=== PATIENT | male | born 1955 | race Two or more races ===

== ENCOUNTER 2018-08-19 04:49 | Inpatient (IN) | payer BC, MEDICAID ==
[~2018-08-19] VITALS: Ht 188 cm; Wt 125.6 kg
[2018-08-19] MEDS ORDERED: HYDROmorphone HCL 2 MG/ML VL IV ONE ×2 (05:15→06:45)
[2018-08-19] MEDS ORDERED: ONDANSETRON HCL 4 MG/2 ML VIAL IV ONE (05:15)
[2018-08-19] MEDS ORDERED: SODIUM CHLORIDE 0.9% 1,000 ML IV ONE (05:15)
[2018-08-19] MEDS ORDERED: ADENOSINE 6 MG/2 ML INJ IV ONE ×4 (05:45→06:00)
[2018-08-19] MEDS ORDERED: SODIUM CHLORIDE 0.9% 1,550 ML IV ONE (06:30)
[2018-08-19 07:00] LABS: Hemoglobin 12.7 g/dL (13.5-17.5); Platelet Count (auto) 89 10^3/uL (140-450); Red Blood Cells 4.49 10^6/uL (4.5-5.90)
[2018-08-19 07:05] LABS: Hematocrit 39.3 % (41.0-53.0); Mean Corpuscular Hemoglobin 28.2 pg (28.0-32.0); Mean Corpuscular Hgb Conc. 32.2 g/dL (32.0-36.0); Mean Corpuscular Volume 87.7 fL (80.0-100.0); Red Cell Distribution Width 15.2 % (11.8-14.3)
[2018-08-19 07:12] LABS: Albumin 2.4 g/dL (3.4-5.0); Calcium 8.7 mg/dL (8.5-10.1); Magnesium 2.5 mg/dL (1.6-2.6); Potassium 4.7 mmol/L (3.5-5.1)
[2018-08-19 07:13] LABS: White Blood Cell 62.6 10^3/uL (4.4-10.8)
[2018-08-19 07:14] LABS: Basophils % (manual) 0 (0.0-2.0); Blast Cells 0; Metamyelocytes % 0; Myelocytes % 0; Promyelocytes % 0; Reactive Lymphocytes 0
[2018-08-19 07:28] LABS: Bilirubin, Total 4.1 mg/dL (0.2-1.0); Total Protein 5.9 g/dL (6.4-8.2)
[2018-08-19 07:44] LABS: Lactic Acid w/Reflex 3.6 mmol/L (0.4-2.0)
[2018-08-19] MEDS ORDERED: VANCOMYCIN 1GM/250ML 250 ML IV ONE (08:00)
[2018-08-19] MEDS ORDERED: PIPERACILLIN-TAZOB 3.375GM 100 ML IV ONE (08:00)
[2018-08-19 08:07] LABS: INR 1.84 (0.9-1.15)
[2018-08-19 08:36] LABS: Band Neutrophils % (manual) 20; Eosinophils % (manual) 10 (0-7); Lymphocytes % (manual) 2 (10.0-50.0); Monocytes % (manual) 3 (0-12)
[2018-08-19] MEDS ORDERED: NITROGLYCERIN 0.4 MG SL TAB SL PRN (08:45)
[2018-08-19] MEDS ORDERED: MORPHINE SULFATE 4 MG/ML SYR/VIAL IV PRN (08:45)
[2018-08-19] MEDS ORDERED: ASPirin 81 mg TAB PO ONE (08:45)
[2018-08-19] MEDS ORDERED: IOHEXOL 350 MG/ML 100ML IJ ONE (09:03)
[2018-08-19] MEDS: SODIUM CHLORIDE 0.9% 1,000 ML IV SCH ×2 (09:15→16:26)
[2018-08-19] MEDS ORDERED: VANCOMYCIN PER PHARMACY 0 MG IV SCH (09:45)
[2018-08-19] MEDS: ASPirin 81 mg TAB PO SCH (10:00)
[2018-08-19] MEDS: METOPROLOL TARTRATE 25 MG TAB PO SCH ×3 (10:00→21:57)
[2018-08-19] MEDS: DOCUSATE SOD 100 MG CAP PO SCH ×2 (10:00→21:56)
[2018-08-19] MEDS: ONDANSETRON HCL 4 MG/2 ML VIAL IV PRN ×2 (11:31→15:40)
[2018-08-19] MEDS: HYDROmorphone HCL 2 MG/ML VL IV PRN ×4 (11:31→23:44)
--- NOTE | 2018-08-19 11:55 | NUR ---
Telemetry admit from [facility]A admitted to Telemetry unit. Patient oriented to ANATOLIY dooley RN, Telemetry unit, room 291, bed B, and unit policies regarding patient care and visiting hours. Patient now on continuous telemetry monitoring, tele box #[id number] and telemetry reading on arrival to unit is NSR. Patient placed on bedside oxygen, weighed by bedscale and encouraged to call if they need something. All questions and concerns addressed, patient verbalized understanding.
[2018-08-19 13:00] VITALS: BP 98/61
[2018-08-19] MEDS ORDERED: METH-562 PO (13:07)
[2018-08-19] MEDS ORDERED: RIVA10TA PO (13:07)
[2018-08-19] MEDS ORDERED: MELO1TAB73 PO (13:07)
--- NOTE | 2018-08-19 14:00 | NUR ---
WOUND CONSULT NOTE: [facility] BARIATRIC AIR BED ORDERED AT THIS TIME PER BEDSIDE NURSE REQUEST. PATIENT TO BE PLACED, PENDING DELIVERY BY STEPHANY CAMARENA. SKIN/WOUND CARE PLAN AND WOUND CARE ORDERS PLACED PER PROTOCOL.
--- NOTE | 2018-08-19 14:45 | NUR ---
HOSPITALIST AWARE The hospitalist calls and is updated on the patient's status. The patient's troponin level is high and the hospitalist places and order for a cardiology consult via telephone. Will continue to monitor and POC.
[2018-08-19] MEDS: PIPERACILLIN-TAZOB 3.375GM 100 ML IV SCH ×2 (15:39→21:24)
--- NOTE | 2018-08-19 16:55 | NUR ---
ONCOLOGIST BEDSIDE Dr. Bentley is bedside and updates the patient and the patient's family on the POC.
[2018-08-19 17:00] VITALS: BP_SYST 95; BP_SYST 99; BP_DIAS 59; BP_DIAS 61
--- NOTE | 2018-08-19 17:00 | NUR ---
WOUND CARE NOTE: IN TO ASSESS PATIENT AT THIS TIME FOR SKIN INTEGRITY. AWAITING DELIVERY OF BARIATRIC AIR BED WITH TRAPEZE. PATIENT EDUCATED ON THE USE OF THE TRAPEZE. PATIENT VERBALIZED UNDERSTANDING. PATIENT HAS GENERALIZED EDEMA, ESPECIALLY TO THE BLE THAT IS NON PITTING. HE IS WOUND FREE AT THIS TIME. RECOMMEND: FREQUENT TURN SCHEDULE Q 2 HOURS, PRN CONDITION PERMITS, WITH PRESSURE REDISTRIBUTION USING PILLOWS/WEDGES, BID/PRN APPLICATION WITH MOISTURE BARRIER CREAM, COVERING UPPER MEDIAL SACRUM WITH OPTIFOAM GENTLE SACRAL DRESSING, DIETARY CONSULT, ELEVATION OF BLE UP FOR EDEMA CONTROL, SPECIALTY AIR BED, CONTINUED MONITORING BY WOUND CARE TEAM.
[2018-08-19] MEDS ORDERED: RIVAROXABAN 15 MG TAB PO SCH (18:00)
--- NOTE | 2018-08-19 18:35 | NUR ---
SPECIALITY MATTRESS The patient is transferred to a [facility] Specialty mattress per wound care order, will continue to monitor and POC.
--- NOTE | 2018-08-19 19:40 | NUR ---
Opening Shift Note Assumed care of patient, awake and oriented. No S/S of distress/SOB or pain. On specialty mattress. Discussed on POC and to call for assist PRN, patient verbalized understanding, call light within reach, will continue to monitor for changes Q1hr and PRN.
[2018-08-19 20:00] VITALS: BP 106/59
--- NOTE | 2018-08-19 21:40 | NUR ---
Noted skin tear on sacral area, instructed patient to take photos for reference, per patient he wanted to do it in the morning
[2018-08-19] MEDS: ENOXAPARIN SOD 120 MG/0.8 ML SYRINGE SC SCH (21:57)
[2018-08-19 22:00] VITALS: BP 106/59
[2018-08-19] MEDS: VANCOMYCIN 1GM/250ML 250 ML IV SCH (23:10)
--- NOTE | 2018-08-19 23:15 | NUR ---
IV on RAC infiltrated, removed with catheter intact, patient tolerated well IV insertion IV access obtained, via clean sterile technique by inserting 22 gauge catheter at RFA. IV secured properly. No trauma to site. Patient tolerated procedure well.
[2018-08-20] MEDS: SODIUM CHLORIDE 0.9% 1,000 ML IV SCH ×3 (00:45→16:06)
[2018-08-20] MEDS: PIPERACILLIN-TAZOB 3.375GM 100 ML IV SCH ×4 (03:30→21:09)
--- NOTE | 2018-08-20 04:00 | NUR ---
Pictures taken on skin tear of sacral area, applied Z-guard and covered with optifoam. Turned every 2 hours, patient tolerated well
[2018-08-20 05:00] VITALS: BP 112/65
[2018-08-20] MEDS: HYDROmorphone HCL 2 MG/ML VL IV PRN ×8 (05:18→22:55)
[2018-08-20 05:29] LABS: Hematocrit 34.1 % (41.0-53.0); Hemoglobin 11.2 g/dL (13.5-17.5); Mean Corpuscular Hemoglobin 28.5 pg (28.0-32.0); Mean Corpuscular Hgb Conc. 32.8 g/dL (32.0-36.0); Mean Corpuscular Volume 86.8 fL (80.0-100.0); Platelet Count (auto) 93 10^3/uL (140-450); Red Blood Cells 3.93 10^6/uL (4.5-5.90); Red Cell Distribution Width 15.5 % (11.8-14.3)
[2018-08-20 05:40] LABS: Calcium 8.3 mg/dL (8.5-10.1); Potassium 4.5 mmol/L (3.5-5.1)
[2018-08-20 05:44] LABS: BUN/Creatinine Ratio 38.9; Bilirubin, Total 3.9 mg/dL (0.2-1.0); Total Protein 4.9 g/dL (6.4-8.2)
[2018-08-20 05:44] LABS: White Blood Cell 57.9 10^3/uL (4.4-10.8)
[2018-08-20 05:45] LABS: Basophils % (manual) 0 (0.0-2.0); Blast Cells 0; Metamyelocytes % 0; Myelocytes % 0; Promyelocytes % 0; Reactive Lymphocytes 0
[2018-08-20 05:51] LABS: Urine Amorphous Crystal FEW /hpf (None Seen); Urine Bacteria FEW /hpf (None Seen); Urine Blood Negative /uL (Negative); Urine Specific Gravity 1.028 (1.001-1.035); Urine WBC 1 /hpf (0 - 3)
--- NOTE | 2018-08-20 07:30 | NUR ---
OPENING NOTE The patient is received alert and oriented times four with no SOB or s/s of distress at this time. The patient is resting in bed in the lowest position with call light within reach, will continue to monitor and POC.
[2018-08-20 08:44] LABS: Band Neutrophils % (manual) 12; Eosinophils % (manual) 12 (0-7); Lymphocytes % (manual) 4 (10.0-50.0); Monocytes % (manual) 11 (0-12)
[2018-08-20 09:13] VITALS: BP 112/63
[2018-08-20] MEDS: ASPirin 81 mg TAB PO SCH (09:13)
[2018-08-20] MEDS: METOPROLOL TARTRATE 25 MG TAB PO SCH ×2 (09:13→22:39)
[2018-08-20] MEDS: DOCUSATE SOD 100 MG CAP PO SCH ×2 (09:13→22:38)
[2018-08-20] MEDS: ENOXAPARIN SOD 120 MG/0.8 ML SYRINGE SC SCH ×2 (09:14→22:39)
--- NOTE | 2018-08-20 09:45 | NUR ---
IV insertion IV access obtained, via clean sterile technique by inserting 20 gauge catheter at the left forearm after one attempt(s). IV secured properly. No trauma to site. Patient tolerated procedure well.
[2018-08-20] MEDS: VANCOMYCIN 1GM/250ML 250 ML IV SCH ×2 (10:35→20:19)
--- NOTE | 2018-08-20 12:15 | NUR ---
PAIN UNCONTROLLED The patient states that his pain is uncontrolled with his current pain medication regiment. Dr. Bentley is paged for the patient, will continue POC.
--- NOTE | 2018-08-20 12:50 | NUR ---
GONZALO UNCONTROLLED The patient's pain is uncontrolled by his current medication regiment. Dr. Ngo is paged for the patient, will continue POC.
[2018-08-20 13:01] VITALS: BP 104/58
[2018-08-20] MEDS: METHOCARBAMOL 500 MG TAB PO PRN ×2 (13:15→20:15)
--- NOTE | 2018-08-20 15:20 | NUR ---
ONCOLOGIST CALLS Dr. Bentley calls and is updated on the patient's uncontrolled pain status. Dr. Bentley places orders via telephone, will continue to monitor and POC.
[2018-08-20] MEDS ORDERED: HYDROmorphone HCL 2 MG/ML VL IV PRN (15:30)
--- NOTE | 2018-08-20 16:30 | NUR ---
Rounds Patient awake and alert. No S/S of distress/SOB or pain. Will continue to monitor changes q1hr and PRN.
[2018-08-20] MEDS ORDERED: HYDR-531 PO (16:51)
[2018-08-20] MEDS ORDERED: METH-532 PO (16:51)
[2018-08-20] MEDS ORDERED: LIDO5DIS21 TOP (16:51)
[2018-08-20] MEDS ORDERED: RIVA20TA PO (16:51)
[2018-08-20 16:56] VITALS: BP 113/68
--- NOTE | 2018-08-20 18:00 | NUR ---
TRANSFER SERVICE Dr. Villanueva states that he is transferring service to Dr. Dailey. The patient and the patient's family is made aware.
--- NOTE | 2018-08-20 19:40 | NUR ---
Opening Shift Note Assumed care of patient, awake and alert. No S/S of distress/SOB. On specialty mattress. Family at bedside. Discussed on POC and to call for assist as needed, turned every 2 hours, call light within reach, will continue to monitor for changes Q1hr and PRN.
[2018-08-20 20:00] VITALS: BP 114/61
[2018-08-20 22:00] VITALS: BP 114/61
[2018-08-21] MEDS: SODIUM CHLORIDE 0.9% 1,000 ML IV SCH ×3 (01:43→16:17)
[2018-08-21] MEDS: HYDROmorphone HCL 2 MG/ML VL IV PRN ×9 (02:40→23:14)
[2018-08-21] MEDS: PIPERACILLIN-TAZOB 3.375GM 100 ML IV SCH ×4 (03:12→20:58)
[2018-08-21 05:00] VITALS: BP 107/61
[2018-08-21] MEDS: METHOCARBAMOL 500 MG TAB PO PRN (05:06)
[2018-08-21] MEDS: VANCOMYCIN 1GM/250ML 250 ML IV SCH ×2 (05:06→16:16)
--- NOTE | 2018-08-21 07:25 | NUR ---
OPENING SHIFT PATIENT IS AWAKE IN BED. PATIENT IS ALERT AND ORIENTED X4. NO S/S OF DISTRESS OR SOB. PATIENT C/O OF 8/10 BACK PAIN. WILL MEDICATE PER EMAR. RESPIRATIONS EVEN AND UNLABORED. PATIENT IS ON 3L NASAL CANNULA, WITH NORMAL SALINE INFUSING @ 120 ML/HR INTRAVENOUSLY. IS AT BEDSIDE. BED IS IN LOWEST POSITION, SIDE RAILS UP X2, AND CALL LIGHT WITHIN REACH. DISCUSSED POC WITH PATIENT AND , PATIENT AND VERBALIZED UNDERSTANDING. WILL CONTINUE TO MONITOR Q1 HOUR AND PRN.
[2018-08-21 08:55] VITALS: BP 111/60
[2018-08-21] MEDS: ASPirin 81 mg TAB PO SCH (11:08)
[2018-08-21] MEDS: METOPROLOL TARTRATE 25 MG TAB PO SCH ×2 (11:09→21:53)
[2018-08-21] MEDS: DOCUSATE SOD 100 MG CAP PO SCH ×2 (11:09→21:37)
[2018-08-21] MEDS: ENOXAPARIN SOD 120 MG/0.8 ML SYRINGE SC SCH ×2 (11:09→21:37)
--- NOTE | 2018-08-21 11:13 | NUR ---
MRI C.D IN CHART FROM 08/07 PATIENT REFUSED NEW MRI HERE, DUE TO PAIN LEVEL AND ALSO RECENT MRI STUDY DONE WITH/WITHOUT CONTRAST. C.D. GIVEN TO THIS R.N. AND PLACED IN HARD CHART.
[2018-08-21 12:55] VITALS: BP 111/66
[2018-08-21 17:50] VITALS: BP 116/64
--- NOTE | 2018-08-21 18:48 | NUR ---
END OF SHIFT PATIENT IS ASLEEP IN BED. RESPIRATIONS ARE EVEN AND UNLABORED. FAMILY IS AT BEDSIDE. NO S/S OF DISTRESS OR SOB. BED IS IN LOWEST POSITION , SIDE RAILS UP X2, AND CALL LIGHT WITHIN REACH. WILL ENDORSE CARE TO FUEL CELL SYSTEMS ENGINEER R.N.
--- NOTE | 2018-08-21 20:17 | NUR ---
Opening Shift Note Assumed care of patient, awake and alert. No S/S of distress/SOB c/o all over pain 9/10 pain level. Instructed on POC and to call for assist PRN, will continue to monitor for changes Q1hr and PRN.Medicated with hydromorphone 1mg.i.v.p as needed.Family at bedside, given to family their own patient X-ray disc.
[2018-08-21 22:00] VITALS: BP 113/63
[2018-08-22] MEDS: SODIUM CHLORIDE 0.9% 1,000 ML IV SCH ×3 (00:45→16:40)
[2018-08-22] MEDS: VANCOMYCIN 1GM/250ML 250 ML IV SCH ×3 (00:58→20:14)
[2018-08-22] MEDS: PIPERACILLIN-TAZOB 3.375GM 100 ML IV SCH ×4 (02:30→21:15)
[2018-08-22] MEDS: HYDROmorphone HCL 2 MG/ML VL IV PRN ×10 (03:17→23:17)
[2018-08-22 05:00] VITALS: BP 120/71
--- NOTE | 2018-08-22 07:16 | NUR ---
Report given to Carla Fraser to assume care.
--- NOTE | 2018-08-22 07:30 | NUR ---
Opening Shift Note Assumed care of patient from NOC RNHaley. Patient resting with eyes closed, even rise and fall of chest noted. No S/S of distress/SOB. Patient on inflatable bed which is in lowest, locked position. Nasal cannula in place, connected to 3L of O2. Fall precautions in place and call light within reach. Will continue to monitor for changes Q1hr and PRN.
[2018-08-22 09:00] VITALS: BP 102/75
--- NOTE | 2018-08-22 09:18 | NUR ---
ROSALINDA Received call from Huong TELLEZ. States that Hospice arrangements can not be set up until Friday. Will let MD know.
[2018-08-22] MEDS: ASPirin 81 mg TAB PO SCH (09:32)
[2018-08-22] MEDS: METOPROLOL TARTRATE 25 MG TAB PO SCH ×2 (09:33→21:16)
[2018-08-22] MEDS: ENOXAPARIN SOD 120 MG/0.8 ML SYRINGE SC SCH ×2 (09:33→21:16)
[2018-08-22] MEDS: DOCUSATE SOD 100 MG CAP PO SCH ×2 (09:33→21:15)
[2018-08-22 13:00] VITALS: BP 95/58
--- NOTE | 2018-08-22 13:32 | NUR ---
PAGED Paged Dr. Woodard per patient's family request for use of a condom catheter or urethral catheter. Awaiting call back.
[2018-08-22] MEDS ORDERED: LACTULOSE 20Gm/30ML SOLN PO ONE (13:45)
[2018-08-22] MEDS ORDERED: LACTULOSE 20Gm/30ML SOLN PO PRN (13:45)
[2018-08-22] MEDS: METHOCARBAMOL 500 MG TAB PO PRN (14:20)
--- NOTE | 2018-08-22 16:27 | NUR ---
CATHETER Condom catheter placed on patient per order. Tolerated well. Will continue to monitor.
[2018-08-22 17:00] VITALS: BP 106/62
--- NOTE | 2018-08-22 19:35 | NUR ---
Opening Shift Note Assumed care of patient, awake and alert. No S/S of distress/SOB. Pt states generalized pain /10. Instructed on POC and to call for assistance as needed. Pt is laying in a specialty bed with the rails up x2, bed locked in the lowest position and the call light is within reach. Pt has 20 ga IVs in the left and right forearms that flush without discomfort. Condom catheter is in place. Will continue to monitor.
--- NOTE | 2018-08-22 19:37 | NUR ---
CLOSING NOTE Endorsed care of patient to NOC Vik CASILLAS.
[2018-08-22 21:46] VITALS: BP_SYST 109; BP_SYST 111; BP_DIAS 68; BP_DIAS 69
--- NOTE | 2018-08-23 00:30 | NUR ---
New optifoam dressing applied to medial sacrum.
[2018-08-23] MEDS: SODIUM CHLORIDE 0.9% 1,000 ML IV SCH ×3 (00:50→17:00)
[2018-08-23] MEDS: HYDROmorphone HCL 2 MG/ML VL IV PRN ×6 (01:45→17:00)
[2018-08-23] MEDS: PIPERACILLIN-TAZOB 3.375GM 100 ML IV SCH ×4 (02:26→21:22)
[2018-08-23 05:02] VITALS: BP 101/60
[2018-08-23] MEDS: VANCOMYCIN 1GM/250ML 250 ML IV SCH ×2 (06:19→17:01)
[2018-08-23 06:22] LABS: Hemoglobin 11.6 g/dL (13.5-17.5); Mean Corpuscular Hgb Conc. 32.1 g/dL (32.0-36.0); Red Blood Cells 4.19 10^6/uL (4.5-5.90)
[2018-08-23 06:29] LABS: Mean Corpuscular Hemoglobin 27.6 pg (28.0-32.0); Platelet Count (auto) 135 10^3/uL (140-450); Red Cell Distribution Width 15.7 % (11.8-14.3)
[2018-08-23 06:46] LABS: Basophils % (manual) 0 (0.0-2.0); Blast Cells 0; Metamyelocytes % 0; Myelocytes % 0; Promyelocytes % 0; Reactive Lymphocytes 0; White Blood Cell 82.4 10^3/uL (4.4-10.8)
--- NOTE | 2018-08-23 07:15 | NUR ---
OPENING NOTE Assumed care of patient from NOC RNVik. Patient awake and alert with no S/S of distress/SOB. C/O pain 10/10 on adult pain scale, will administer prn pain medication as ordered. Instructed on POC and to call for assist PRN, verbalized understanding. Bed in lowest, locked position with side rails up x3. Fall precautions in place and call light within reach. Will continue to monitor for changes Q1hr and PRN.
[2018-08-23 09:00] VITALS: BP 112/62
[2018-08-23] MEDS: DOCUSATE SOD 100 MG CAP PO SCH ×2 (10:07→21:27)
[2018-08-23] MEDS: ASPirin 81 mg TAB PO SCH (10:07)
[2018-08-23] MEDS: ENOXAPARIN SOD 120 MG/0.8 ML SYRINGE SC SCH ×2 (10:08→21:28)
[2018-08-23] MEDS: METOPROLOL TARTRATE 25 MG TAB PO SCH ×2 (10:08→21:27)
[2018-08-23 11:00] LABS: Band Neutrophils % (manual) 17; Eosinophils % (manual) 9 (0-7); Lymphocytes % (manual) 5 (10.0-50.0); Monocytes % (manual) 7 (0-12)
[2018-08-23 13:00] VITALS: BP 105/75
--- NOTE | 2018-08-23 13:20 | NUR ---
PAIN Patient states pain not controlled with current pain regimen. Patient's family requesting a fentanyl patch. The family is also requesting insertion of mejia catheter ,since condom catheter was not affective, and insertion of enema. States that it has been several weeks since patient has had a BM. Will notify MD of patient/family requests.
--- NOTE | 2018-08-23 14:16 | NUR ---
Nutrition Assessment Notes please see attached link for complete assessment Est. Needs IBW [id number] kcal (25-30 kcal/kgIBW), 86-111 gms pro (1.0-1.3 gms/kgIBW d/t severe hypoalb). Will continue to monitor pertinent labs and reassess nutrient need prn Addendum: 08/23/18 at [address] Amended: Links added.
[2018-08-23] MEDS: MORPHINE SULF 30 mg ER tab PO SCH ×2 (15:10→21:27)
[2018-08-23] MEDS: ONDANSETRON HCL 4 MG/2 ML VIAL IV PRN (15:11)
--- NOTE | 2018-08-23 16:20 | NUR ---
ENEMA Tap water enema inserted per MD order. Patient able to hold in for approximately 15 mins. No solid BM noted. Patient refused another enema at this time. Will continue to monitor.
[2018-08-23 17:05] VITALS: BP 123/66
--- NOTE | 2018-08-23 17:26 | NUR ---
MEJIA Patient assessed and determined to be in need of mejia catheter. Order obtained from MD. Patient educated on catheter and reason for insertion. All questions answered. Mejia catheter 16 gauge Australian inserted with clean sterile technique. Patient tolerated well.
--- NOTE | 2018-08-23 18:55 | NUR ---
CLOSING NOTE Endorsed care of patient to NOC Vik CASILLAS.
--- NOTE | 2018-08-23 19:40 | NUR ---
Opening Shift Note Assumed care of patient, asleep at this time. No S/S of distress/SOB or pain. On air mattress, mejia draining to dark quinten urine. Safety secured, bed in lowest position, call light within reach, will continue to monitor
[2018-08-23] MEDS: LACTULOSE 20Gm/30ML SOLN PO SCH (21:28)
[2018-08-23] MEDS: Pro-Stat SF 30ml Vanilla PO SCH (21:29)
[2018-08-23] MEDS: Ensure Enlive Chocolate 8oz Bottle PO SCH (21:30)
[2018-08-23 21:59] VITALS: BP 108/66
--- NOTE | 2018-08-24 | NUR ---
BM Patient had a loose bowel movement. Changed linens and pads, turned to his left side and every 2 hours, will continue to monitor
[2018-08-24] MEDS: SODIUM CHLORIDE 0.9% 1,000 ML IV SCH ×3 (00:45→18:22)
[2018-08-24] MEDS: VANCOMYCIN 1GM/250ML 250 ML IV SCH ×3 (02:48→23:13)
[2018-08-24] MEDS: PIPERACILLIN-TAZOB 3.375GM 100 ML IV SCH ×4 (02:48→21:30)
[2018-08-24] MEDS: HYDROmorphone HCL 2 MG/ML VL IV PRN ×3 (02:48→15:16)
[2018-08-24 04:45] VITALS: BP 110/79
--- NOTE | 2018-08-24 07:30 | NUR ---
OPENING NOTE ASSUMED CARE OF PT. PT LAYING ON BED, HOB LOW-FOWLERS. PT A&O X4. ON 3 LPM/NC, O2 SATURATION 91%. NO SIGNS OF SOB/DISTRESS NOTED. PT ON TELE #28, HR 98. SAFETY PRECAUTIONS IN PLACE INCLUDING, BED SET TO LOWEST POSITION/LOCKED. BEDSIDE RAILS UP X2. BED ALARM ON. CALL LIGHT WITHIN REACH. INSTRUCTED PT TO CALL FOR ASSISTANCE. DISCUSSED POC WITH PT. PT VERBALIZED UNDERSTANDING. WILL CONTINUE TO MONITOR Q 1HR AND PRN.
[2018-08-24 09:00] VITALS: BP 89/48
[2018-08-24] MEDS: LACTULOSE 20Gm/30ML SOLN PO SCH ×2 (09:07→21:33)
[2018-08-24] MEDS: ASPirin 81 mg TAB PO SCH (09:08)
[2018-08-24] MEDS: DOCUSATE SOD 100 MG CAP PO SCH ×2 (09:08→21:33)
[2018-08-24] MEDS: METOPROLOL TARTRATE 25 MG TAB PO SCH ×2 (09:13→21:35)
[2018-08-24] MEDS: Ensure Enlive Chocolate 8oz Bottle PO SCH ×2 (09:13→21:33)
[2018-08-24] MEDS: Pro-Stat SF 30ml Vanilla PO SCH ×2 (09:18→22:00)
[2018-08-24] MEDS: ENOXAPARIN SOD 120 MG/0.8 ML SYRINGE SC SCH ×2 (09:18→21:43)
[2018-08-24] MEDS: MORPHINE SULF 30 mg ER tab PO SCH ×2 (09:18→13:14)
[2018-08-24 13:00] VITALS: BP 97/62
--- NOTE | 2018-08-24 14:58 | NUR ---
MESSAGE LEFT FOR DIONICIO AT [facility] REQUESTING AUTH FOR HOSPICE...AWAITING CALL BACK.
--- NOTE | 2018-08-24 16:48 | NUR ---
SANDI FROM [facility] CALLED. NURSE WAS INFORMED SHE IS UNABLE TO GET GET IN CONTACT WITH PATIENTS FAMILY. WILL INFORM FAMILY MEMBER AND WILL GIVE THEN [facility] INFORMATION.
--- NOTE | 2018-08-24 16:50 | NUR ---
assessment Patient is a 63 year old male who is alert and oriented. Prior to admission patient lived home with family and functioned with assistance. Per patient he will return home to his prior living arrangements post discharge. Patient has a fww, shower chair, bedside commode, and cane for home use. Patients PCP is Dr Dailey. I informed patient he has a right to speak to a social media marketing manager regarding all care. I informed patient he has a right to participate in any and all discharge planning. Patient is aware of visiting hours on the hospital floor. I informed patient he has a right to privacy. Patient does not have a POA and advanced directive. I have offered patient information on POA and advanced directives. I informed the patient the advantages and benefits of having an Advanced Directive. Patient verbalized understanding and agreed to discharge plan. Per ss consult refer to hospice. Patient has no preference on who provides service. MDF order has been sent to [facility]. Angie will meet with patient and family at bedside. Waiting on discharge now. Addendum: 08/24/18 at 1652 by Huong TELLEZ Amended: Links added.
--- NOTE | 2018-08-24 16:53 | NUR ---
SPOKE TO EDGARDO PATIENTS . NURSE PROVIDED HER WITH [facility] INFORMATION. SANDI .
[2018-08-24 17:03] VITALS: BP 96/71
--- NOTE | 2018-08-24 19:30 | NUR ---
ENDORSED CARE TO TC CASILLAS.
--- NOTE | 2018-08-24 19:30 | NUR ---
Opening Shift Note Bed side report with day RN Nikki. Assumed care of patient, awake and alert. No S/S of distress/SOB or pain. Instructed on POC and to call for assist PRN, will continue to monitor for changes Q1hr and PRN. Bed locked and in lowest position, call light within reach.
[2018-08-24 22:11] VITALS: BP 119/74
--- NOTE | 2018-08-25 01:00 | NUR ---
REPOSITIONED PT> Pt tolerated procedure well. will continue to monitor pt.
[2018-08-25] MEDS: SODIUM CHLORIDE 0.9% 1,000 ML IV SCH ×3 (02:40→16:45)
[2018-08-25] MEDS: PIPERACILLIN-TAZOB 3.375GM 100 ML IV SCH ×4 (03:21→21:22)
[2018-08-25 04:51] VITALS: BP 97/68
[2018-08-25] MEDS: HYDROmorphone HCL 2 MG/ML VL IV PRN ×3 (04:54→14:03)
[2018-08-25 05:59] LABS: Hematocrit 37.6 % (41.0-53.0)
[2018-08-25 06:04] LABS: Calcium 9.2 mg/dL (8.5-10.1); Potassium 4.6 mmol/L (3.5-5.1)
[2018-08-25 06:05] LABS: Hemoglobin 12.1 g/dL (13.5-17.5); Mean Corpuscular Hemoglobin 28.2 pg (28.0-32.0); Mean Corpuscular Hgb Conc. 32.2 g/dL (32.0-36.0); Mean Corpuscular Volume 87.7 fL (80.0-100.0); Platelet Count (auto) 96 10^3/uL (140-450); Red Blood Cells 4.29 10^6/uL (4.5-5.90); Red Cell Distribution Width 16.6 % (11.8-14.3)
[2018-08-25 06:06] LABS: BUN/Creatinine Ratio 43.8
[2018-08-25 06:45] LABS: White Blood Cell 89.5 10^3/uL (4.4-10.8)
[2018-08-25 06:46] LABS: Basophils % (manual) 0 (0.0-2.0); Blast Cells 0; Metamyelocytes % 0; Myelocytes % 0; Promyelocytes % 0; Reactive Lymphocytes 0
--- NOTE | 2018-08-25 06:48 | NUR ---
CRITICAL LAB VALUE PHYSICIAN PRESIDENT Katya WBC critical lab value 89.5, will page hospitalist
--- NOTE | 2018-08-25 06:49 | NUR ---
KATIA HOSPITALIST Paged hospitalist for critical lab value of WBC 89.5 , will continue to monitor pt
--- NOTE | 2018-08-25 07:30 | NUR ---
OPENING NOTE ASSUMED CARE OF PT. PT LAYING ON BED, HOB SEMI-FOWLERS. PT A&O X4. ON 3 LPM/NC, O2 SATURATION 94%. NO SIGNS OF SOB/DISTRESS NOTED. PT ON TELE #28, HR 107. SAFETY PRECAUTIONS IN PLACE INCLUDING, BED SET TO LOWEST POSITION/LOCKED. BEDSIDE RAILS UP X2. BED ALARM ON. CALL LIGHT WITHIN REACH. INSTRUCTED PT TO CALL FOR ASSISTANCE. DISCUSSED POC WITH PT. PT VERBALIZED UNDERSTANDING. WILL CONTINUE TO MONITOR Q 1HR AND PRN.
[2018-08-25 08:22] LABS: Band Neutrophils % (manual) 19; Eosinophils % (manual) 7 (0-7); Lymphocytes % (manual) 3 (10.0-50.0); Monocytes % (manual) 5 (0-12)
[2018-08-25 09:06] VITALS: BP 106/56
[2018-08-25] MEDS: METOPROLOL TARTRATE 25 MG TAB PO SCH ×2 (10:00→21:23)
[2018-08-25] MEDS: Pro-Stat SF 30ml Vanilla PO SCH ×2 (10:00→22:00)
[2018-08-25] MEDS: Ensure Enlive Chocolate 8oz Bottle PO SCH ×2 (10:00→22:00)
[2018-08-25] MEDS: VANCOMYCIN 1GM/250ML 250 ML IV SCH ×2 (10:29→18:57)
[2018-08-25] MEDS: LACTULOSE 20Gm/30ML SOLN PO SCH ×2 (10:29→21:22)
[2018-08-25] MEDS: ASPirin 81 mg TAB PO SCH (10:29)
[2018-08-25] MEDS: DOCUSATE SOD 100 MG CAP PO SCH ×2 (10:29→21:22)
[2018-08-25] MEDS: MORPHINE SULF 30 mg ER tab PO SCH ×2 (10:30→21:23)
[2018-08-25] MEDS: ENOXAPARIN SOD 120 MG/0.8 ML SYRINGE SC SCH ×2 (10:31→21:23)
[2018-08-25] MEDS: METHOCARBAMOL 500 MG TAB PO PRN (12:21)
[2018-08-25 13:04] VITALS: BP 107/67
[2018-08-25 17:17] VITALS: BP 102/54
--- NOTE | 2018-08-25 17:40 | NUR ---
SPOKE TO SANDI FROM [facility], PATIENT WILL BE PICKED UP TOMORROW BY [facility] AT 11:00 AM. HOME EQUIPMENT WILL BE DELIVERED TO [facility] (08/25/18). IF PATIENT IS NOT READY FOR PICK AT THAT TIME PLEASE CALL SANDI AT OR . DR. GARCIA AT BEDSIDE AND PER RADHA PATIENT CAN BE DISCHARGED TOMORROW 08/26/18.
[2018-08-25] MEDS ORDERED: MORPHINE SULFATE 10 MG/ML INJ 1ML SDV IV PRN ×2 (18:45→19:00)
--- NOTE | 2018-08-25 19:25 | NUR ---
ENDORSED CARE TO TC CASILLAS.
--- NOTE | 2018-08-25 19:30 | NUR ---
Opening Shift Note Assumed care of patient, patient resting. Family member at bedside, No S/S of distress/SOB or pain noted. Updated White boards on POC and to callfor assist PRN, will continue to monitor for changes Q1hr and PRN. Bed locked and in lowest position, call light within reach, will continue to monitor pt frequently.
[2018-08-25 22:29] VITALS: BP 136/73
--- NOTE | 2018-08-25 23:15 | NUR ---
Repositioned patient will continue to monitor pt
[2018-08-26] MEDS: SODIUM CHLORIDE 0.9% 1,000 ML IV SCH ×2 (00:45→08:45)
--- NOTE | 2018-08-26 01:42 | NUR ---
PT ROUNDS Pt resting no s/sx's of distress noted will continue to monitor pt.
[2018-08-26] MEDS: PIPERACILLIN-TAZOB 3.375GM 100 ML IV SCH ×2 (02:31→09:00)
[2018-08-26 05:02] VITALS: BP 120/41
[2018-08-26] MEDS: HYDROmorphone HCL 2 MG/ML VL IV PRN ×2 (05:02→10:35)
[2018-08-26] MEDS: VANCOMYCIN 1GM/250ML 250 ML IV SCH (05:02)
--- NOTE | 2018-08-26 07:20 | NUR ---
Opening Shift Note Assumed care of patient, awake and alert. No S/S of distress/SOB or pain. Instructed on POC and to call for assist PRN, will continue to monitor for changes Q1hr and PRN.
--- NOTE | 2018-08-26 08:02 | NUR ---
Spoke with Angie from [employer]. All equipment has been delivered. Will confirm with .
--- NOTE | 2018-08-26 08:09 | NUR ---
Spoke with patient's . Per all equipment has been delivered to house. Discussed POC with . agrees to POC.
--- NOTE | 2018-08-26 08:13 | NUR ---
Paged Dr. Arteaga regarding discharge order.
[2018-08-26 09:00] VITALS: BP 108/69
--- NOTE | 2018-08-26 09:09 | NUR ---
Paged Dr. Arteaga for discharge order. Awaiting call back.
[2018-08-26] MEDS: Ensure Enlive Chocolate 8oz Bottle PO SCH (10:00)
[2018-08-26] MEDS: ASPirin 81 mg TAB PO SCH (10:00)
[2018-08-26] MEDS: ENOXAPARIN SOD 120 MG/0.8 ML SYRINGE SC SCH (10:00)
[2018-08-26] MEDS: LACTULOSE 20Gm/30ML SOLN PO SCH (10:00)
[2018-08-26] MEDS: METOPROLOL TARTRATE 25 MG TAB PO SCH (10:00)
[2018-08-26] MEDS: Pro-Stat SF 30ml Vanilla PO SCH (10:00)
[2018-08-26] MEDS: MORPHINE SULF 30 mg ER tab PO SCH (10:00)
[2018-08-26] MEDS: DOCUSATE SOD 100 MG CAP PO SCH (10:00)
--- NOTE | 2018-08-26 10:00 | NUR ---
Spoke with Dr. Hodges regarding discharge. Per MD EKG that was ordered as a repeat EKG does not need to be done. Cancel order. MD stated patient can receive pain medication anytime until transport arrives. MD ordered to take 1/2 a tablet of Napoleon for break through pain once discharged. Wait until 30 minutes after administration to take 1/2 tablet. Patient and family verbalized understanding. MD ordered for Patton catheter to be continued for after discharge. Do not remove Patton catheter.
--- NOTE | 2018-08-26 10:09 | NUR ---
re-assessment Patient and family has signed consents for hospice. Patient will be transported home by [facility] at 12pm today post discharge. Addendum: 08/26/18 at 1610 by Huong TELLEZ Amended: Links added.
--- NOTE | 2018-08-26 11:00 | NUR ---
Wound photos taken.
--- NOTE | 2018-08-26 12:20 | NUR ---
Discharge instructions given as ordered. Encourage to follow up with PMD as instructed. All questions and concerns addressed. Patient and verbalized understanding. Medication reconciliation form completed and copy given to patient. IVs (2) removed with catheter intact, pressure dressing applied, Patton catheter left in patient per MD's orders. Telemetry unit returned to [facility]. Patient taken to vehicle via [place] with all personal belongings, accompanied by transportation staff and family member. No distress noted at time of departure. No POM medications held in pharmacy. Patient could not sign discharge paperwork or hold pen due to extreme pain. Gave patient and Blanca Shaffer discharge instructions. Patient and verbalized understanding. signed discharge instructions via telephone. Told patient was on 3L NC at hospital. No further questions.
== END 2018-08-26 12:30 | disposition hospice, home (50) | DRG 871 ==
LOC: EDBD 04:49 → ER 04:57 → TELE 08:55 → TELE-WESTW 11:57
PROVIDERS: ADMIT Nurse Practitioner Acute Care; ATTEND Internal Medicine
DX: A41.9 Sepsis, unspecified organism (principal); G93.41 Metabolic encephalopathy; G93.6 Cerebral edema; J18.1 Lobar pneumonia, unspecified organism; E43 Unspecified severe protein-calorie malnutrition; N17.0 Acute kidney failure with tubular necrosis; C34.12 Malignant neoplasm of upper lobe, left bronchus or lung; C78.7 Secondary malignant neoplasm of liver and intrahepatic bile duct; C79.31 Secondary malignant neoplasm of brain; C79.51 Secondary malignant neoplasm of bone; D68.9 Coagulation defect, unspecified; E87.1 Hypo-osmolality and hyponatremia; N39.0 Urinary tract infection, site not specified; M48.54XA Collapsed vertebra, not elsewhere classified, thoracic region, initial encounter for fracture; D69.6 Thrombocytopenia, unspecified; F41.9 Anxiety disorder, unspecified; Z51.5 Encounter for palliative care; Z79.01 Long term (current) use of anticoagulants; Z85.118 Personal history of other malignant neoplasm of bronchus and lung; Z86.718 Personal history of other venous thrombosis and embolism; Z92.3 Personal history of irradiation; M54.5 Low back pain; D63.8 Anemia in other chronic diseases classified elsewhere; Z68.35 Body mass index [BMI] 35.0-35.9, adult; E88.09 Other disorders of plasma-protein metabolism, not elsewhere classified; E83.51 Hypocalcemia; N18.2 Chronic kidney disease, stage 2 (mild); I27.21 Secondary pulmonary arterial hypertension
CPT/HCPCS: 36415; 70450; 71045; 71275; 76705; 80048; 80053; 80202; 81001; 82553; 82565; 83605; 83735; 83880; 84443; 84484; 85007; 85027; 85379; 85384; 85610; 85730; 87040; 87081; 87086; 93005; 93306; 94761; 96361; 96374; 96375; A6257; G0378; J0153; J2405; J2543